=== PATIENT | female | born 1970 | race Two or more races ===

== ENCOUNTER 2016-06-13 20:01 | Emergency (ER) | payer OTHER ==
[2016-06-13 20:09] VITALS: BP 113/72; PULSE 68; TEMP 98.2; BMI 25.0
[2016-06-13] MEDS: KETOROLAC TROMETHAMINE 60 MG/2 ML VIAL IM ONE (20:47)
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
[2016-06-13] MEDS ORDERED: KETOROLAC TROMETHAMINE 60 MG/2 ML VIAL ONE (20:49)
== END 2016-06-13 21:38 | disposition home or self-care (01) ==
LOC: FER 20:01
PROC: 3E0333Z Introduction of Anti-inflammatory into Peripheral Vein, Percutaneous Approach (ICD-10-PCS; principal; 2016-06-13)
DX: S13.4XXA Sprain of ligaments of cervical spine, initial encounter (principal); V43.52XA Car driver injured in collision with other type car in traffic accident, initial encounter; Y93.89 Activity, other specified; Y92.411 Interstate highway as the place of occurrence of the external cause
CPT/HCPCS: 72050-TC; 99282-25

== ENCOUNTER 2021-01-20 09:28 | Emergency (ER) | payer OTHER ==
[2021-01-20 09:52] VITALS: BP 104/60; PULSE 80; TEMP 98.8; BMI 22.4
[2021-01-20] MEDS ORDERED: ACETAMINOPHEN 325 MG TABLET (FP) PO ONE (09:52)
[2021-01-20] MEDS ORDERED: ACETAMINOPHEN 325 MG TABLET (FP) ONE ×2 (09:54→10:02)
[2021-01-20 11:39] LABS: EPITHELIAL CELLS FEW /hpf
== END 2021-01-20 12:30 | disposition left against medical advice (07) ==
LOC: FER 09:28
DX: R07.9 Chest pain, unspecified (principal)
CPT/HCPCS: 71046-TC-FY; 74176-TC; 81003; 81015; 84703; 87077; 87086; 93005; 99284-25

== ENCOUNTER 2022-10-16 14:36 | Emergency (ER) | payer OTHER ==
[2022-10-16 14:51] VITALS: BP 95/50; PULSE 59; RESP 18; TEMP 98.3; BMI 26.4
[2022-10-16] MEDS ORDERED: KETOROLAC TROMETHAMINE 30 MG/1 ML VIAL IM ONE (15:20)
[2022-10-16] MEDS ORDERED: METHOCARBAMOL 500 MG TABLET PO ONE (15:20)
[2022-10-16] MEDS ORDERED: LIDOCAINE 5% TOPICAL PATCH TP ONE (15:20)
[2022-10-16] MEDS ORDERED: METHOCARBAMOL 500 MG TABLET ONE (15:45)
[2022-10-16] MEDS ORDERED: LIDOCAINE 5% TOPICAL PATCH ONE (15:45)
[2022-10-16] MEDS ORDERED: KETOROLAC TROMETHAMINE 30 MG/1 ML VIAL ONE (15:45)
[2022-10-16] MEDS ORDERED: LIDOCAINE PATCH REMOVAL MC SCH (22:00)
== END 2022-10-16 17:00 | disposition home or self-care (01) ==
LOC: FER 14:36
DX: M25.511 Pain in right shoulder (principal); M79.601 Pain in right arm; M54.6 Pain in thoracic spine
CPT/HCPCS: 73030-TC-RT-FY; 81025; 99283-25

== ENCOUNTER 2023-04-20 06:31 | Emergency (ER) | payer OTHER ==
[2023-04-20 06:42] VITALS: BP 100/49; PULSE 74; RESP 16; TEMP 97.8; BMI 27.5
[2023-04-20] MEDS ORDERED: IBUPROFEN 600 MG TABLET (FP) PO ONE (07:23)
[2023-04-20] MEDS: IBUPROFEN 600 MG TABLET (FP) PO ONE (07:25)
== END 2023-04-20 08:28 | disposition home or self-care (01) ==
LOC: FER 06:31
DX: S60.021A Contusion of right index finger without damage to nail, initial encounter (principal); M79.644 Pain in right finger(s); W23.0XXA Caught, crushed, jammed, or pinched between moving objects, initial encounter; Y92.810 Car as the place of occurrence of the external cause
CPT/HCPCS: 73130-TC-RT-FY; 99283-25

== ENCOUNTER 2023-05-19 22:01 | Emergency (ER) | payer OTHER ==
[2023-05-19 22:16] VITALS: BP 103/63; PULSE 76; RESP 18; TEMP 98.1; BMI 25.4
[2023-05-19] MEDS ORDERED: IBUPROFEN 600 MG TABLET (FP) PO ONE (22:56)
[2023-05-19] MEDS ORDERED: ACETAMINOPHEN 325 MG TABLET (FP) ONE (22:57)
[2023-05-19] MEDS: ACETAMINOPHEN 325 MG TABLET (FP) PO ONE (23:03)
[2023-05-19] MEDS: IBUPROFEN 600 MG TABLET (FP) PO ONE (23:03)
== END 2023-05-19 23:17 | disposition home or self-care (01) ==
LOC: JER 22:01
DX: M25.511 Pain in right shoulder (principal); M25.512 Pain in left shoulder; M79.601 Pain in right arm; M79.602 Pain in left arm; M25.561 Pain in right knee; M25.562 Pain in left knee; V43.52XA Car driver injured in collision with other type car in traffic accident, initial encounter
CPT/HCPCS: 99283-25

== ENCOUNTER 2023-05-25 18:44 | Emergency (ER) | payer OTHER ==
[2023-05-25 18:59] VITALS: BP 98/58; PULSE 78; RESP 20; TEMP 98.2; BMI 24.5
== END 2023-05-25 19:30 | disposition home or self-care (01) ==
LOC: FER 18:44
DX: S00.531A Contusion of lip, initial encounter (principal); W01.198A Fall on same level from slipping, tripping and stumbling with subsequent striking against other object, initial encounter
CPT/HCPCS: 99282-25

== ENCOUNTER 2023-12-07 15:16 | Emergency (ER) | payer OTHER ==
[2023-12-07 15:33] VITALS: BP 99/53; PULSE 74; RESP 18; TEMP 98.4; BMI 21.7
[2023-12-07] MEDS ORDERED: IBUPROFEN 600 MG TABLET (FP) PO ONE (16:09)
[2023-12-07] MEDS: IBUPROFEN 600 MG TABLET (FP) PO ONE (16:12)
== END 2023-12-07 17:42 | disposition home or self-care (01) ==
LOC: JERFT 15:16 → JER 15:16 → JERFT 17:42
DX: S46.812A Strain of other muscles, fascia and tendons at shoulder and upper arm level, left arm, initial encounter (principal); R42 Dizziness and giddiness; W07.XXXA Fall from chair, initial encounter
CPT/HCPCS: 73010-TC-FY; 73030-TC-LT-FY; 99283-25